=== PATIENT | male | born 1990 | race Caucasian/White ===

== ENCOUNTER 2016-10-31 04:00 | Inpatient (IN) | payer OTHER, MEDICARE ==
--- NOTE | ~2016-10-31 | HP ---
Unit #: [id number] #: [id number] Patient: NICO DURAN [id number] [place] [address] [id number] I MR#: [id number] NAME: NICO DURAN ROOM: 13 Age: 26 Sex: M Admission Date: 10/31/2016 : 1990 Attending Physician: Farrah Best M.D. Admitting Physician: Farrah Best M.D. Primary Care Physician: Almas Summers M.D. HISTORY AND PHYSICAL HISTORY OF PRESENT ILLNESS Nico is a 26 year old admitted to [address] [place] [address] with psychotic bizarre behavior. He has been running around his neighborhood telling his neighbors that he is Satan. He is a poor historian so his history is taken from his chart. PAST MEDICAL HISTORY Restless leg syndrome PAST SURGICAL HISTORY Nothing reported ALLERGIES No known drug allergies. SOCIAL HISTORY Smokes one-half pack per day. Denies alcohol and illicit drug use. FAMILY HISTORY Medically not known. REVIEW OF SYSTEMS He does not answer questions appropriately. There are no reports of nausea, vomiting or diarrhea. He has had no cough or increased temperature. CURRENT MEDICATIONS 1. Minipress 2 mg q.h.s. 2. Abilify 10 mg q.h.s. 3. Propranolol 10 mg b.i.d. 4. Depakote 500 mg b.i.d. 5. Saphris 10 mg b.i.d. 6. Milk of Magnesia p.r.n. 7. Maalox p.r.n. 8. Tylenol p.r.n. 9. Nicotine patch 14 mg q day PHYSICAL EXAMINATION GENERAL: Alert, well-nourished, in no apparent distress. VITAL SIGNS: Blood pressure 130/60, heart rate 80, respirations 16, temperature 98.6. WEIGHT: 250 pounds. Unit #: [id number] #: [id number] Patient: NICO DURAN HEIGHT: 5'7". SKIN: Warm and dry without rash or lesion. HEENT: Normocephalic. TMs not viewed. Oral and nasal passages clear. Conjunctivae clear. Pupils equal, round and reactive to light and accommodation. Extraocular movements intact. NECK: Supple without lymphadenopathy or thyromegaly. HEART: Regular rate and rhythm without murmur. LUNGS: Clear. ABDOMEN: Soft, nontender. : Not done. EXTREMITIES: No evidence of cyanosis, clubbing or edema. Moves all extremities without focal deficit. NEUROLOGICAL: Unable to complete extended exam. He does move all extremities without focal deficit. Hand senior dynamics crm developer is equal and gait is normal. IMPRESSION Psychiatric admission RECOMMENDATIONS PSYCHIATRIC: Per psychiatrist. MEDICAL: I see no contraindications to participating in facility's activities. MEDICAL PROGNOSIS Good. MEDICAL CONDITION Stable. Dictated by... Tammi Welch P.A.-C. for Danita Carter/siddhartha TD: 10/31/2016 22:54 JOB #: [id number] HISTORY AND PHYSICAL Page 1 of 1 X Tammi Welch PA X HISTORY AND PHYSICAL
--- NOTE | ~2016-10-31 | DS ---
Unit #: [id number] #: [id number] [facility] [id number] [facility] [address] [place] [address] [id number] I MR#: [id number] NAME: MELBA HARRISON ROOM: [facility] Age: 26 Sex: M Admission Date: 10/31/2016 : 1990 Discharge Date: 11/13/2016 Attending Physician: Farrah Best M.D. Primary Care Physician: Almas Summers M.D. DISCHARGE SUMMARY Mr. Harrison is a 26-year-old single white male with history of chronic mental illness, who is very well known to us from previous multiple encounters and was brought to the hospital as a transfer from [facility]. DISCHARGE DIAGNOSES Psychiatric: Schizoaffective disorder, bipolar type, most recent episode depressed, recurrent, moderate, with psychosis; alcohol dependence, moderate. Medical: None. Stressors: Moderate psychosocial stressors. HISTORY OF PRESENT ILLNESS Please see initial psychiatric evaluation for details. PAST PSYCHIATRIC HISTORY Please see initial psychiatric evaluation for details. PAST MEDICAL HISTORY Please see initial psychiatric evaluation for details. HOSPITAL COURSE The patient was admitted to the adult psychiatric unit at [facility] i[facility] Lisa and was oriented to the hospital environment. Routine p.r.n. medications were initiated, and he was started back on his home medications and he was seen to be acutely psychotic upon presentation and has been on a long-acting injectable antipsychotic. DICTATION ENDS HERE. Dictated by... Danita Reyes/yessy TD: 11/13/2016 06:57 JOB #: [id number] Unit #: [id number] #: [id number] Patient: MELBA HARRISON DISCHARGE SUMMARY Page 1 of 1 X Farrah Best MD X DISCHARGE SUMMARY
--- NOTE | ~2016-10-31 | PN ---
Unit #: [id number] #: [id number] Patient: MELBA HARRISON [id number] [facility] [address] [place] [address] [id number] I MR#: [id number] NAME: MELBA HARRISON ROOM: [facility] Age: 26 Sex: M Admission Date: 10/31/2016 : 1990 Attending Physician: Farrah Best M.D. Admitting Physician: Farrah Best M.D. Primary Care Physician: Danita Ignacio PROGRESS NOTES DATE November 05, 2016 DISCUSSION Mr. Harrison is a 26-year-old white male, who was seen today and chart was reviewed and the case was discussed with the staff. He has been anxious, restless, and disorganized, and had a rough day yesterday without physical aggression and paranoia, and acute psychotic break and p.r.n. dose of Thorazine had to be given. Meanwhile, he has been taking the medications and tolerating them fairly well with no reported side effects. MENTAL STATUS EXAMINATION Young white male, who was casually dressed with fair personal hygiene and appears to be in no acute distress or discomfort. He was awake and alert on interaction with intact orientation. His mood is anxious with a congruent affect. He denies any suicidal or homicidal ideations. His thought processes are disorganized with some looseness of associations and paranoid ideations. His insight and judgment remain significantly impaired. TREATMENT PLAN We will continue him on his current treatment protocol, and will monitor his response to the medications, and make further adjustments as needed. Dictated by... Danita Reyes/frida TD: 11/06/2016 08:56 JOB #: [id number] Unit #: [id number] #: [id number] Patient: MELBA HARRISON PROGRESS NOTES Page 1 of 1 X Farrah Best MD PROGRESS NOTE
--- NOTE | ~2016-10-31 | PN ---
Unit #: [id number] #: [id number] Patient: MELBA HARRISON [id number] [facility] [address] [place] [address] [id number] I MR#: [id number] NAME: MELBA HARRISON ROOM: 13 Age: 26 Sex: M Admission Date: 10/31/2016 : 1990 Attending Physician: Farrah Best M.D. Admitting Physician: Farrah Best M.D. Primary Care Physician: Danita Ignacio PROGRESS NOTES DATE OF SERVICE: 11/06/2016 SUBJECTIVE Mr. Harrison is a 26-year-old white male, who was seen today and chart was reviewed and case was discussed with the staff. He has been anxious, withdrawn, rather seclusive to himself. Meanwhile, he has been cooperative with treatment recommendations and has been taking the medications and tolerating them fairly well with no reported side effects. MENTAL STATUS EXAMINATION Young white male who was casually dressed with fair personal hygiene and appears to be in no acute distress or discomfort. He was awake and alert with intact orientation. His mood was anxious with a congruent affect. His speech was slow and tangential. His thought processes were disorganized with some looseness of associations and paranoid ideations. His insight and judgment remain significantly impaired. TREATMENT PLAN 1. We will continue him on his current treatment protocol. We will monitor his response and make further adjustments as needed. 2. We will continue to follow up. Dictated by... Danita Reyes/yessy TD: 11/08/2016 01:27 JOB #: [id number] [facility] PROGRESS NOTES Page 1 of 1 X Farrah Best MD X PROGRESS NOTE
--- NOTE | ~2016-10-31 | PN ---
Unit #: [id number] #: [id number] Patient: MELBA HARRISON [id number] [facility] [address] [place] [address] [id number] I MR#: [id number] NAME: MELBA HARRISON ROOM: 15 Age: 26 Sex: M Admission Date: 10/31/2016 : 1990 Attending Physician: Farrah Best M.D. Admitting Physician: Farrah Best M.D. Primary Care Physician: Danita Ignacio PROGRESS NOTES DATE 11/08/2016 DISCUSSION Mr. Harrison is a 26-year-old white male who was seen today and chart was reviewed and case was discussed with the staff. He has been anxious, withdrawn and rather seclusive to himself. Meanwhile, he has been cooperative with treatment recommendations and has been taking the medications though staff informed me that he has explosive diarrhea throughout the night and as such Imodium will be given. MENTAL STATUS EXAMINATION Young white male who was casually dressed with fair personal hygiene and appears to be in no acute distress or discomfort. He was awake and alert with impaired attention and concentration. His mood was anxious with a congruent affect. He denies any suicidal or homicidal ideation. His insight and judgement remains slightly impaired. TREATMENT PLAN 1. Will continue on his current treatment protocol and will monitor his response to the medications and make further adjustments as needed. 2. Will continue to follow up. Dictated by... Danita Reyes/yusuf TD: 11/09/2016 18:38 JOB #: [id number] Unit #: [id number] #: [id number] Patient: MELBA HARRISON PROGRESS NOTES Page 1 of 1 X Farrah Best MD X PROGRESS NOTE
--- NOTE | ~2016-10-31 | PN ---
Unit #: [id number] #: [id number] Patient: MELBA HARRISON [id number] [facility] [address] [place] [address] [id number] I MR#: [id number] NAME: MELBA HARRISON ROOM: 13 Age: 26 Sex: M Admission Date: 10/31/2016 : 1990 Attending Physician: Farrah Best M.D. Admitting Physician: Farrah Best M.D. Primary Care Physician: Danita Ignacio PROGRESS NOTES DATE OF SERVICE: 11/07/2016 SUBJECTIVE Mr. Harrison is a 26-year-old white male who was seen today and chart was reviewed and case was discussed with the staff. He has been anxious, withdrawn, and rather seclusive to himself. Meanwhile, he has been cooperative with treatment recommendations and has been taking the medications and tolerating them fairly well with no reported side effects. MENTAL STATUS EXAMINATION Young white male who was casually dressed with fair personal hygiene, appears to be in no acute distress or discomfort. He was awake and alert on interaction with intact orientation. His mood was anxious with a congruent affect. He denies any suicidal or homicidal ideations. His thought processes were disorganized with some looseness of associations and paranoid ideations. His insight and judgment remain significantly impaired. TREATMENT PLAN 1. We will continue him on his current medications and treatment protocol. We will monitor his response to the medications and make further adjustments as needed. 2. We will continue to follow up. Dictated by... Danita Reyes/eyssy TD: 11/08/2016 01:55 JOB #: [id number] Unit #: [id number] #: [id number] Patient: MELBA HARRISON PROGRESS NOTES Page 1 of 1 X Farrah Best MD PROGRESS NOTE
--- NOTE | ~2016-10-31 | PN ---
Unit #: [id number] #: [id number] Patient: MELBA HARRISON [id number] [facility] [address] [place] [address] [id number] I MR#: [id number] NAME: MELBA HARRISON ROOM: [facility] Age: 26 Sex: M Admission Date: 10/31/2016 : 1990 Attending Physician: Farrah Best M.D. Admitting Physician: Farrah Best M.D. Primary Care Physician: Danita Ignacio PROGRESS NOTES DATE 11/03/2016 DISCUSSION Mr. Harrison is a 26-year-old white male who was seen today and chart was reviewed and case was discussed with the staff. He has been anxious, withdrawn and rather seclusive to himself. Meanwhile, he has been cooperative with treatment recommendations and has been taking medications and tolerating them fairly well with no reported side effects. MENTAL STATUS EXAMINATION Young white male who was casually dressed with fair personal hygiene and appears to be in no acute distress or discomfort. He was awake and alert with impaired attention and concentration. His mood was anxious with congruent affect. His speech is slow and restricted in content. His thought processes were disorganized with some looseness of associations and flight of ideas. His insight and judgement remains significantly impaired. TREATMENT PLAN 1. Will continue on his current medications and treatment protocol and will monitor his response to the medications and make further adjustments as needed. 2. Will continue to follow up. Dictated by... Danita Reyes/yusuf TD: 11/03/2016 20:57 JOB #: [id number] Unit #: [id number] #: [id number] Patient: MELBA HARRISON PROGRESS NOTES Page 1 of 1 X Farrah Best MD X PROGRESS NOTE
--- NOTE | ~2016-10-31 | PN ---
Unit #: [id number] #: [id number] Patient: MELBA HARRISON [id number] [facility] [address] [place] [address] [id number] I MR#: [id number] NAME: MELBA HARRISON ROOM: [facility] Age: 26 Sex: M Admission Date: 10/31/2016 : 1990 Attending Physician: Farrah Best M.D. Admitting Physician: Farrah Best M.D. Primary Care Physician: Danita Ignacio PROGRESS NOTES DATE 11/10/2016 DISCUSSION Mr. Harrison is a 26-year-old, white male who was seen today and chart was reviewed and case was discussed with the staff who report the patient had another episode of physical aggression last night and was seen to have a violent outburst and was becoming a dander to self and others an intramuscular injection of Haldol and Benadryl were given to cut down his agitation and aggression and was able to go to sleep and when confronted about it, he acted like he has no recollection and then later stated that he was feeling paranoid and delusional. MENTAL STATUS EXAM Young white male who was casually dressed with fair personal hygiene, appears to be in no acute distress or discomfort. He was awake and alert with impaired attention and concentration. His mood was anxious with congruent affect. His speech was slow and restricted in content. His thought processes were disorganized with some looseness of associations. His insight and judgement remains significantly impaired. TREATMENT PLAN 1. We will continue him on his current medications and treatment protocol. We will monitor his response to the medication and make further adjustments as needed. 2. We will continue to follow up. Dictated by... Danita Reyes/siddhartha TD: 11/13/2016 02:19 JOB #: [id number] Unit #: [id number] #: [id number] Patient: MELBA HARRISON PROGRESS NOTES Page 1 of 1 X Farrah Best MD X PROGRESS NOTE
--- NOTE | ~2016-10-31 | PN ---
Unit #: [id number] #: [id number] Patient: MELBA HARRISON [id number] [facility] [address] [place] [address] [id number] I MR#: [id number] NAME: MELBA HARRISON ROOM: 15 Age: 26 Sex: M Admission Date: 10/31/2016 : 1990 Attending Physician: Farrah Best M.D. Admitting Physician: Farrah Best M.D. Primary Care Physician: Almas Summers M.D. PEAANDREW PROGRESS NOTES DATE 11/12/2016 DISCUSSION Mr. Harrison is a 26-year-old, white male who was seen today and chart was reviewed and case was discussed with the staff. He has been anxious, withdrawn and rather seclusive to himself. Meanwhile, he has been cooperative with treatment recommendations. He has been taking medications and tolerating them fairly well. MENTAL STATUS EXAM Young white male who was casually dressed with fair personal hygiene, appears to be in no acute distress or discomfort. He was awake and alert on interaction with intact orientation. His mood was anxious with congruent affect. He denies any suicidal or homicidal ideation. His insight and judgement remains slightly impaired. TREATMENT PLAN We will continue him on his current treatment protocol. We will monitor his response and make further adjustments as needed. Dictated by... Danita Reyes/siddhartha TD: 11/15/2016 00:36 JOB #: [id number] [facility] PROGRESS NOTES Page 1 of 1 X Farrah Best MD X PROGRESS NOTE
--- NOTE | ~2016-10-31 | PN ---
Unit #: [id number] #: [id number] Patient: MELBA HARRISON [id number] [facility] [address] [place] [address] [id number] I MR#: [id number] NAME: MELBA HARRISON ROOM: 13 Age: 26 Sex: M Admission Date: 10/31/2016 : 1990 Attending Physician: Farrah Best M.D. Admitting Physician: Farrah Best M.D. Primary Care Physician: Danita Ignacio PROGRESS NOTES DATE OF SERVICE: 11/04/2016 SUBJECTIVE Mr. Harrison is a 26-year-old white male who was seen today and chart was reviewed and case was discussed with the staff. He has been anxious and withdrawn, though has not shown any agitation or irritability. He has been cooperative with treatment recommendations and remains anxious, withdrawn, and rather seclusive to himself. MENTAL STATUS EXAMINATION Young white male who was casually dressed with fair personal hygiene, appears to be in no acute distress or discomfort. He was awake and alert with impaired attention and concentration. His mood was anxious with a congruent affect. He denies any suicidal or homicidal ideations. His thought processes were disorganized with some looseness of association and paranoid ideations. His insight and judgment remain significantly impaired. TREATMENT PLAN 1. We will continue him on his current medications and treatment protocol. We will monitor his response and make further adjustments as needed. 2. We will continue to follow up. Dictated by... Danita Reyes/yessy TD: 11/05/2016 22:47 JOB #: [id number] Unit #: [id number] #: [id number] Patient: MELBA HARRISON PROGRESS NOTES Page 1 of 1 X Farrah Best MD PROGRESS NOTE
--- NOTE | ~2016-10-31 | PN ---
Unit #: [id number] #: [id number] Patient: MELBA HARRISON [id number] [facility] [address] [place] [address] [id number] I MR#: [id number] NAME: MELBA HARRISON ROOM: 13 Age: 26 Sex: M Admission Date: 10/31/2016 : 1990 Attending Physician: Farrah Best M.D. Admitting Physician: Farrah Best M.D. Primary Care Physician: Danita Ignacio PROGRESS NOTES SUBJECTIVE Mr. Harrison is a 29-year-old white male, who was seen today and chart was reviewed and the case was discussed with the staff. He has been anxious, withdrawn, and rather seclusive to himself. Meanwhile, he has been cooperative with the treatment recommendations and has been taking the medications and tolerating them fairly well with no reported side effects. MENTAL STATUS EXAMINATION Young white male, who was casually dressed with fair personal hygiene, appears to be in no acute distress or discomfort. His mood was anxious with a congruent affect. He denies any suicidal or homicidal ideations and also denies any auditory or visual hallucinations. His insight and judgment remain slightly impaired. TREATMENT PLAN 1. We will continue him on his current medications and treatment protocol. We will monitor his response and make further adjustments as needed. 2. We will continue to follow up. Dictated by... Danita Reyes/yessy TD: 11/02/2016 14:22 JOB #: [id number] [facility] NOTES Page 1 of 1 X Farrah Best MD PROGRESS NOTE
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
--- NOTE | ~2016-10-31 | PN ---
Unit #: [id number] #: [id number] Patient: MELBA HARRISON [id number] [facility] [address] [place] [address] [id number] MR#: [id number] NAME: MELBA HARRISON ROOM: [facility] Age: 26 Sex: M Admission Date: 10/31/2016 : 1990 Attending Physician: Farrah Best M.D. Admitting Physician: Farrah Best M.D. Primary Care Physician: Danita Ignacio PROGRESS NOTES DATE 11/09/2016 DISCUSSION Mr. Harrison is a 26-year-old, white male who was seen today and chart was reviewed and case was discussed with the staff. He has been anxious, withdrawn, and rather seclusive to himself. Meanwhile, he has been cooperative with the treatment recommendations. He remains seclusive to himself with bizarre behavior, disorganized thought and speech and thought blocking, persistent paranoia and at times having some explosive and volatile behavior. Meanwhile, he has been taking the medication and tolerating them fairly well with no reported side effects but does not appear to be showing a full therapeutic response despite being on combination antipsychotics. MENTAL STATUS EXAM Young white male who was casually dressed with fair personal hygiene, appears to be in no acute distress or discomfort. He was awake and alert with impaired attention and concentration. His mood was anxious with congruent affect. His speech was slow and restricted in content. His thought processes were disorganized with some looseness of associations, thought blocking and paranoid ideations. His insight and judgement remains significantly impaired. TREATMENT PLAN 1. We will continue him on his current medications and treatment protocol. We will monitor his response to the medication and make further adjustment of needed. 2. We will continue to follow up. Dictated by... Danita Reyes/siddhartha TD: 11/10/2016 06:07 JOB #: [id number] Unit #: [id number] #: [id number] Patient: MELBA HARRISON PROGRESS NOTES Page 1 of 1 X Farrah Best MD PROGRESS NOTE
--- NOTE | ~2016-10-31 | DS ---
Unit #: [id number] #: [id number] Patient: MELBA HARRISON [id number] [facility] [address] [place] [address] [id number] MR#: [id number] NAME: MELBA HARRISON ROOM: 15 Age: 26 Sex: M Admission Date: 10/31/2016 : 1990 Discharge Date: 11/13/2016 Attending Physician: Farrah Best M.D. Primary Care Physician: Almas Summers M.D. DISCHARGE SUMMARY JOB NOTE: ADDENDUM ADDENDUM Mr. Harrison is a 26-year-old white male who was scheduled to be discharged earlier; however, discharge planning could not be completed and family did not feel safe having the patient come home and as such, it was decided the patient will be kept in a treatment program until medications stat taking effect and once the treatment plan was completed and the patient felt comfortable getting discharge from the program. Currently, it was decided that he will be discharged from our care and will continue further treatment on an outpatient basis. DISCHARGE CONDITION Stable. PROGNOSIS Fair. Dictated by... Danita Reyes/yessy TD: 12/19/2016 13:19 JOB #: [id number] DISCHARGE SUMMARY Page 1 of 1 X Farrah Best MD DISCHARGE SUMMARY
--- NOTE | ~2016-10-31 | PN ---
Unit #: [id number] #: [id number] Patient: MELBA HARRISON [id number] [facility] [address] [place] [address] [id number] MR#: [id number] NAME: MELBA HARRISON ROOM: 15 Age: 26 Sex: M Admission Date: 10/31/2016 : 1990 Attending Physician: Farrah Best M.D. Admitting Physician: Farrah Best M.D. Primary Care Physician: Danita Ignacio PROGRESS NOTES DATE OF SERVICE: 11/11/2016 SUBJECTIVE Mr. Harrison is a 26-year-old white male, who was seen today and chart was reviewed and case was discussed with the staff. He has been anxious, withdrawn, though has not shown any agitation or aggression. Meanwhile, he has been cooperative with treatment recommendations and has been taking the medications and tolerating them fairly well. MENTAL STATUS EXAMINATION Young white male who was casually dressed with fair personal hygiene, appears to be in no acute distress or discomfort. He was awake and alert on interaction with intact orientation. His mood was anxious with a congruent affect. He denies any suicidal or homicidal ideations. His insight and judgment remain slightly impaired. TREATMENT PLAN 1. We will continue on his current medications and treatment protocol. We will monitor his response to the medications and make further adjustments as needed. 2. We will continue to follow up. Dictated by... Danita Reyes/yessy TD: 11/12/2016 06:08 JOB #: [id number] J[facility] PROGRESS NOTES Page 1 of 1 X Farrah Best MD PROGRESS NOTE
--- NOTE | ~2016-10-31 | PN ---
Unit #: [id number] #: [id number] Patient: MELBA HARRISON [id number] [facility] [address] [place] [address] [id number] I MR#: [id number] NAME: MELBA HARRISON ROOM: [facility] Age: 26 Sex: M Admission Date: 10/31/2016 : 1990 Attending Physician: Farrah Best M.D. Admitting Physician: Farrah Best M.D. Primary Care Physician: Almas Summers M.D. [facility] PROGRESS NOTES DATE 11/01/2016 DISCUSSION Mr. Harrison is a 26-year-old, white male with schizoaffective disorder who was seen today and chart was reviewed and case was discussed with the staff. He has been anxious, withdrawn, disorganized, seclusive to himself. He is unable to carry on any meaningful conversation. Meanwhile, he has been cooperative with treatment recommendation. He has been taking medications and tolerating them fairly well with no reported side effects. MENTAL STATUS EXAM Young white male who was casually dressed with fair personal hygiene, appears to be in no acute distress or discomfort. He was awake and alert on interaction with impaired attention and concentration. His mood was anxious with congruent affect. His speech was slow and goal directed. His thought processes were disorganized with some looseness of associations and flight of ideas. His insight and judgement remains significantly impaired. DIAGNOSTIC IMPRESSION PSYCHIATRIC Schizoaffective disorder, bipolar type, most recent episode depressed recurrent, moderate, with psychosis. MEDICAL None. STRESSORS Mild psychosocial stressors. TREATMENT PLAN 1. The patient has a history of mood disorder, psychosis and he has been decompensating and will need inpatient hospitalization for safety and stabilization. Will start on his home medications and we will adjust the medication and we will monitor response. 2. Supportive therapy was provided to the patient. ESTIMATED LENGTH OF STAY Five to seven days. ABILITY TO HELP SELF Limited. Unit #: [id number] #: [id number] Patient: MELBA HARRISON WILLINGNESS TO HELP SELF. The patient appears to be willing to help self. STRENGTH 1. Communicative 2. Cooperative TREATMENT PLAN Continue on his current medication and monitor response. Dictated by... Danita Reyes/siddhartha TD: 11/02/2016 00:14 JOB #: [id number] [facility] PROGRESS NOTES Page 1 of 1 X Farrah Best MD PROGRESS NOTE
[~2016-10-31 04:00] MED LIST: BENADRYL25 MG PO; COGENTIN1 MG PO; COLACE PO; DIAZEPAM10 MG PO; EFFEXOR75 M2 PO; LITHIUM PO; PRILOSEC20 MG PO; SAPHRIS5 MG SL; TEMAZEPAM30 MG PO; TRIHEXYPHENIDYL2 M1 PO; VOLTAREN50 MG PO
[2016-11-01 09:49] LABS: BASOPHIL% 0.4 % (0-2.5); EOSINOPHIL# 0.5 X10e3 (0-0.7); HEMOGLOBIN 12.9 gm/dL (13.0-16.0); LYMPHOCYTE% 28.8 % (17.0-45.0); MEAN CELL VOLUME 81.6 FL (83-96); MEAN CORPUSCULAR HEMOGLOBIN 26.3 PG (28-34); MEAN CORPUSCULAR HGB CONC 32.2 g/dL (30-36); MONOCYTE# 1.3 X10e3 (0-1.0); MONOCYTE% 12.3 % (3.0-12.0); NEUTROPHIL# 5.6 X10e3 (1.5-7.1); NEUTROPHIL% 53.5 % (40-75); PLATELET COUNT 238 X10e3 (140-420); RED CELL DISTRIBUTION WIDTH 14.5 % (11.0-15.5); WHITE BLOOD COUNT 10.5 X10e3 (4.0-10.5)
[2016-11-01 09:57] LABS: THYROID STIMULATING HORMONE 1.4 uIU/ml (0.34-5.60)
[2016-11-01 10:02] LABS: DIFF IND NO
[2016-11-01 10:04] LABS: FREE THYROXIN (T4) 0.79 ng/dL (0.58-1.64)
[2016-11-01 10:31] LABS: ALBUMIN SERUM 3.7 g/dL (3.5-5.0); BILIRUBIN,TOTAL 0.8 mg/dL (0.2-2.0); CALCIUM SERUM 9.3 mg/dL (8.4-10.2); GLOM FILT RATE Estimated 104.9 mL/min (>60); POTASSIUM 4.5 mmol/L (3.5-5.1); PROTEIN TOTAL SERUM 6.6 g/dL (6.0-8.3)
[2016-11-04 12:25] LABS: URINE APPEARANCE CLEAR; URINE BILIRUBIN NEG (NEG); URINE BLOOD NEG (NEG); URINE COLOR YELLOW; URINE GLUCOSE NEG (NEG); URINE KETONE NEG (NEG); URINE LEUKOCYTE ESTERASE NEG (NEG); URINE NITRATE NEG (NEG); URINE PROTEIN NEG (NEG); URINE SPECIFIC GRAVITY 1.017 (1.003-1.035); URINE UROBILINOGEN 0.2 MG/DL (NEG)
[2016-11-04 12:46] LABS: AMPHETAMINE NEG (NEG); BARBITURATES NEG (NEG); BENZODIAZEPINES NEG (NEG); COCAINE NEG (NEG); MARIJUANA NEG (NEG); OPIATES NEG (NEG); TRICYCLIC ANTIDEPRESSANTS NEG (NEG); U METHADONE NEG (NEG)
== END 2016-11-13 10:00 | disposition home or self-care (01) | DRG 885 ==
LOC: P1S 10:16
PROVIDERS: Psychiatry & Neurology Psychiatry
DX: F25.0 Schizoaffective disorder, bipolar type (principal); F31.32 Bipolar disorder, current episode depressed, moderate; F29 Unspecified psychosis not due to a substance or known physiological condition; F10.20 Alcohol dependence, uncomplicated; F17.210 Nicotine dependence, cigarettes, uncomplicated
CPT/HCPCS: 80053; 80307; 81003; 84439; 84443; 85025; J1200; J1630

== ENCOUNTER 2016-11-16 19:01 | Inpatient (IN) | payer OTHER, MEDICARE ==
--- NOTE | ~2016-11-16 | PN ---
Unit #: [id number] #: [id number] Patient: MELBA HARRISON [id number] [facility] [address] [place] [address] [id number] MR#: [id number] NAME: MELBA HARRISON ROOM: P122 Age: 26 Sex: M Admission Date: 11/16/2016 : 1990 Attending Physician: Farrah Best M.D. Admitting Physician: Farrah Best M.D. Primary Care Physician: Almas Summers M.D. [facility] PROGRESS NOTES DATE November 20, 2016 DISCUSSION Mr. Harrison is a 26-year-old white male, who was seen today and chart was reviewed and the case was discussed with the staff. He has been anxious, withdrawn, agitated, and he was acutely psychotic, and had another explosive and violent outbursts yesterday and left instructions for Haldol to be given as the patient was (1) off the wall and responding to internal stimuli. His mother is also his guardian states that he has done better on a combination of Abilify which was ordered a monthly injection of that, plus Saphris and as such we are switching his Haldol to Saphris and we will monitor response and make further adjustments as needed. Dictated by... Danita Reyes/frida TD: 11/20/2016 11:43 JOB #: [id number] [facility] PROGRESS NOTES Page 1 of 1 X Farrah Best MD PROGRESS NOTE
--- NOTE | ~2016-11-16 | PN ---
Unit #: [id number] #: [id number] Patient: MELBA HARRISON [id number] [facility] [address] [place] [address] [id number] I MR#: [id number] NAME: MELBA HARRISON ROOM: P122 Age: 26 Sex: M Admission Date: 11/16/2016 : 1990 Attending Physician: Farrah Best M.D. Admitting Physician: Farrah Best M.D. Primary Care Physician: Danita Ignacio PROGRESS NOTES DATE 11/19/2016 DISCUSSION Mr. Harrison is a 26-year-old, white male who was seen today and chart was reviewed and case was discussed with the staff. He has been anxious, withdrawn though has not shown any agitation, irritability and has been cooperative with treatment recommendations. He has been taking medications and tolerating them fairly well. MENTAL STATUS EXAM Young white male who was casually dressed with fair personal hygiene, appears to be in no acute distress or discomfort. He was awake and alert with impaired attention and concentration. His mood was anxious and depressed with congruent affect. His speech was slow and restricted in content. His thought processes were disorganized with some looseness of associations. His insight and judgement remains significantly impaired. TREATMENT PLAN 1. We will continue him on his current medications and treatment protocol. We will monitor his response to the medication and make further adjustments as needed. 2. We will continue to follow up. Dictated by... Danita Reyes/siddhartha TD: 11/19/2016 23:19 JOB #: [id number] Unit #: [id number] #: [id number] Patient: MELBA HARRISON PROGRESS NOTES Page 1 of 1 X Farrah Best MD X PROGRESS NOTE
--- NOTE | ~2016-11-16 | PN ---
Unit #: [id number] #: [id number] Patient: MELBA HARRISON [id number] [facility] [address] [place] [address] [id number] I MR#: [id number] NAME: MELBA HARRISON ROOM: P122 Age: 26 Sex: M Admission Date: 11/16/2016 : 1990 Attending Physician: Farrah Best M.D. Admitting Physician: Farrah Best M.D. Primary Care Physician: Danita Ignacio PROGRESS NOTES DATE OF SERVICE: 11/22/2016 SUBJECTIVE Mr. Harrison is who was seen today and chart was reviewed and the case was discussed with the staff. anxious, withdrawn, and rather seclusive to himself . MENTAL STATUS EXAMINATION Young white male, who was casually dressed with fair personal hygiene and appears to be in no acute distress or discomfort. He was awake and alert with intact orientation. His mood was anxious with a congruent affect. He denies any suicidal or homicidal ideation. His insight and judgment remain slightly impaired. TREATMENT PLAN 1. We will continue him on his current medications and treatment protocol. We will monitor his response to the medications and make further adjustments as needed. 2. We will continue to follow up. Dictated by... Danita Reyes/janiyal TD: 11/22/2016 18:09 JOB #: [id number] [facility] PROGRESS NOTES Page 1 of 1 X Farrah Best MD PROGRESS NOTE
--- NOTE | ~2016-11-16 | PN ---
Unit #: [id number] #: [id number] Patient: MELBA HARRISON [id number] [facility] [address] [place] [address] [id number] MR#: [id number] NAME: MELBA HARRISON ROOM: P122 Age: 26 Sex: M Admission Date: 11/16/2016 : 1990 Attending Physician: Farrah Best M.D. Admitting Physician: Farrah Best M.D. Primary Care Physician: Danita Ignacio PROGRESS NOTES DATE November 26, 2016 DISCUSSION Mr. Harrison is a 26-year-old white male, who was seen today and chart was reviewed and the case was discussed with the staff. He has been anxious, withdrawn, but has not shown any agitation and appears to be calm and cooperative with the treatment recommendations and has been taking the medications and tolerating them fairly well. MENTAL STATUS EXAMINATION Young white male, who was casually dressed with fair personal hygiene and appears to be in no acute distress or discomfort. He was awake and alert on interaction with intact orientation. His mood is anxious. He denies any suicidal or homicidal ideations. His insight and judgment remain slightly impaired. TREATMENT PLAN 1. We will continue him on his current medications and treatment protocol, and will monitor his response to the medications, and make further adjustments as needed. 2. We will continue to followup. Dictated by... Danita Reyes/frida TD: 11/27/2016 11:34 JOB #: [id number] Unit #: [id number] #: [id number] Patient: MELBA HARRISON PROGRESS NOTES Page 1 of 1 X Farrah Best MD PROGRESS NOTE
--- NOTE | ~2016-11-16 | PN ---
Unit #: [id number] #: [id number] Patient: MELBA HARRISON [id number] [facility] [address] [place] [address] [id number] MR#: [id number] NAME: MELBA HARRISON ROOM: P122 Age: 26 Sex: M Admission Date: 11/16/2016 : 1990 Attending Physician: Farrah Best M.D. Admitting Physician: Farrah Best M.D. Primary Care Physician: Danita Ignacio PROGRESS NOTES DATE November 28, 2016 DISCUSSION Mr. Harrison is a 26-year-old white male, who was seen today and chart was reviewed and the case was discussed with the staff. He has been anxious, withdrawn, and rather seclusive to himself and remains disorganized; however, no agitation or aggression was noted and he has been taking his medications and tolerating them fairly well with no reported side effects. MENTAL STATUS EXAMINATION Young white male, who was casually dressed with fair personal hygiene and appears to be in no acute distress or discomfort. He was awake and alert on interaction with intact orientation. His mood is anxious with a congruent affect. He denies any suicidal or homicidal ideations. His insight and judgment remain significantly impaired. TREATMENT PLAN 1. We will continue him on his current medications and treatment protocol, and will monitor his response to the medications, and make further adjustments as needed. 2. We will continue to followup. Dictated by... Danita Reyes/frida TD: 11/29/2016 11:14 JOB #: [id number] Unit #: [id number] #: [id number] Patient: MELBA HARRISON PROGRESS NOTES Page 1 of 1 X Farrah Best MD PROGRESS NOTE
--- NOTE | ~2016-11-16 | PN ---
Unit #: [id number] #: [id number] Patient: MELBA HARRISON [id number] [facility] [address] [place] [address] [id number] I MR#: [id number] NAME: MELBA HARRISON ROOM: P122 Age: 26 Sex: M Admission Date: 11/16/2016 : 1990 Attending Physician: Farrah Best M.D. Admitting Physician: Farrah Best M.D. Primary Care Physician: Danita Ignacio PROGRESS NOTES DATE 11/18/2016 DISCUSSION Mr. Harrison is a 26-year-old, white male with mood disorder and psychosis who was seen today and chart was reviewed and case was discussed with the staff. He has been anxious, withdrawn, disorganized, seclusive to himself with blunted affect minimal interaction. Meanwhile, has been taking the medication and tolerating them fairly well with no reported side effects. MENTAL STATUS EXAM Young white male who was casually dressed with fair personal hygiene, appears to be in no acute distress or discomfort. He was awake and alert with impaired attention and concentration. His mood was anxious with congruent affect. He denies any suicidal or homicidal ideation. His insight and judgement remains significantly impaired. TREATMENT PLAN We will continue him on his current medications and treatment protocol. We will monitor his response and make further adjustments as needed. Dictated by... Danita Reyes/siddhartha TD: 11/19/2016 03:15 JOB #: [id number] [facility] PROGRESS NOTES Page 1 of 1 X Farrah Best MD PROGRESS NOTE
--- NOTE | ~2016-11-16 | PN ---
Unit #: [id number] #: [id number] Patient: MELBA HARRISON [id number] [facility] [address] [place] [address] [id number] MR#: [id number] NAME: MELBA HARRISON ROOM: P122 Age: 26 Sex: M Admission Date: 11/16/2016 : 1990 Attending Physician: Farrah Best M.D. Admitting Physician: Farrah Best M.D. Primary Care Physician: Danita Ignacio PROGRESS NOTES DATE November 21, 2016 DISCUSSION Mr. Harrison is a 26-year-old white male, with mood disorder and psychosis, who was seen today and chart was reviewed and the case was discussed with the staff. His mother has called us stating that he has done better on the Saphris and Abilify and would like him to be on both of the medications as Saphris was just started yesterday and Haldol was discontinued. Meanwhile, he has been anxious withdrawn, disorganized, and rather seclusive to himself with bizarre behavior; however, did not have any violent outbursts yesterday. MENTAL STATUS EXAMINATION Young white male, who was casually dressed with fair personal hygiene and appears to be in no acute distress or discomfort. He was awake and alert on interaction with intact orientation. His mood is anxious and depressed with a congruent affect. His speech is slow and goal-directed. He denies any current suicidal or homicidal ideations. His insight and judgment remain significantly impaired. TREATMENT PLAN 1. We will continue him on his current medications and treatment protocol, and will add Abilify and will consider him to be a candidate for long-acting and injectable Abilify. 2. We will continue to followup. Dictated by... Danita Reyes/frida TD: 11/21/2016 13:13 JOB #: [id number] Unit #: [id number] #: [id number] Patient: MELBA HARRISON PROGRESS NOTES Page 1 of 1 X Farrah Best MD PROGRESS NOTE
--- NOTE | ~2016-11-16 | PN ---
Unit #: [id number] #: [id number] Patient: MELBA HARRISON [id number] [facility] [address] [place] [address] [id number] I MR#: [id number] NAME: MELBA HARRISON ROOM: P122 Age: 26 Sex: M Admission Date: 11/16/2016 : 1990 Attending Physician: Farrah Best M.D. Admitting Physician: Farrah Best M.D. Primary Care Physician: Danita Ignacio NOTES DATE OF SERVICE 11/23/2016 DISCUSSION Mr. Harrison is a 26-year-old white male who was seen today. Chart was reviewed and case was discussed with the staff. He appears to be doing better and has received his Abilify Maintena and has not shown any tolerability issues. Meanwhile, he has been taking the medications and tolerating them fairly well though he does appear to be seclusive to himself and has been (1) __ with minimal interaction and poor personal hygiene. MENTAL STATUS EXAMINATION Young white male who is casually dressed with fair personal hygiene, appears to be in no acute distress or discomfort. The patient was awake and alert with impaired attention and concentration. His mood is anxious with a congruent affect. His speech is slow and restricted in content. His thought processes were disorganized with some looseness of associations. His insight and judgment remain significantly impaired. TREATMENT PLAN 1. We will continue him on his current medications and treatment protocol. We will monitor his response to the medications and make further adjustments as needed. 2. We will continue to follow up. Dictated by... Danita Reyes/sloane TD: 11/24/2016 11:44 JOB #: [id number] Unit #: [id number] #: [id number] Patient: MELBA HARRISON PROGRESS NOTES Page 1 of 1 X Farrah Best MD PROGRESS NOTE
--- NOTE | ~2016-11-16 | PN ---
Unit #: [id number] #: [id number] Patient: MELBA HARRISON [id number] [facility] [address] [place] [address] [id number] I MR#: [id number] NAME: MELBA HARRISON ROOM: [facility] Age: 26 Sex: M Admission Date: 11/16/2016 : 1990 Attending Physician: Farrah Best M.D. Admitting Physician: Farrah Best M.D. Primary Care Physician: Danita Ignacio PROGRESS NOTES DATE November 27, 2016 DISCUSSION Mr. Harrison is a 26-year-old white male, who was seen today and chart was reviewed and the case was discussed with the staff. He has been anxious, withdrawn, but is not showing any agitation or irritability, and has been cooperative with the treatment recommendations. He has been taking the medications and tolerating them fairly well with no side effects. MENTAL STATUS EXAMINATION Young white male, who was casually dressed with fair personal hygiene and appears to be in no acute distress or discomfort. He was awake and alert on interaction with intact orientation. His mood is anxious with a congruent affect. He denies any suicidal or homicidal ideations, and also denies any auditory or visual hallucinations. His insight and judgment remain slightly impaired. TREATMENT PLAN 1. We will continue him on his current medications and treatment protocol, and will monitor his response to the medications, and make further adjustments as needed. 2. We will continue to followup. Dictated by... Danita Reyes/frida TD: 11/28/2016 09:33 JOB #: [id number] Unit #: [id number] #: [id number] Patient: MELBA HARRISON PROGRESS NOTES Page 1 of 1 X Farrah Best MD PROGRESS NOTE
--- NOTE | ~2016-11-16 | DS ---
Unit #: [id number] #: [id number] Patient: MELBA HARRISON [id number] [facility] [address] [place] [address] [id number] I MR#: [id number] NAME: MELBA HARRISON ROOM: [facility] Age: 26 Sex: M Admission Date: 11/16/2016 : 1990 Discharge Date: Attending Physician: Farrah Best M.D. Primary Care Physician: Almas Summers M.D. DISCHARGE SUMMARY IDENTIFYING DATA Mr. Harrison is a 26-year-old single white male, who is a resident of [place], [place], and was transferred to us from [facility] at [facility]. DISCHARGE DIAGNOSES Psychiatric: Chronic paranoid schizophrenia. Medical: Hypercoagulability, gastroesophageal reflux disease. Stressors: Mild psychosocial stressors. HISTORY OF PRESENT ILLNESS Please see initial psychiatric evaluation for details. PAST PSYCHIATRIC HISTORY Please see initial psychiatric evaluation for details. PAST MEDICAL HISTORY Please see initial psychiatric evaluation for details. HOSPITAL COURSE The patient was admitted to the adult psychiatric unit at [facility] and was oriented to the hospital environment. Routine p.r.n. medications were initiated and he was started back on his home medications and medications were adjusted. However, the patient was seen to be not showing a therapeutic response and his mother then informed us that he has done better on a combination of Saphris and Abilify and Saphris was then started at 10 mg sublingual b.i.d. and oral Abilify was initiated and given his history of poor compliance with medication, he was considered to be a good candidate for long-acting injectable Abilify and since he did not show any tolerability issues to the oral Abilify, Abilify Maintena 400 mg intramuscular once every 30 days was initiated and he was given the first dose while on the unit; followed by which, it was decided that he will be discharged home and will continue treatment on an outpatient basis. DISCHARGE MEDICATIONS Abilify Maintena 400 mg intramuscular every 30 days for psychosis and Saphris 10 mg sublingual b.i.d. for psychosis. DISCHARGE CONDITION Stable. PROGNOSIS Fair. Unit #: [id number] #: [id number] Patient: MELBA HARRISON Dictated by... Danita Reyes/yessy TD: 11/29/2016 06:46 JOB #: [id number] DISCHARGE SUMMARY Page 1 of 1 X Farrah Best MD DISCHARGE SUMMARY
--- NOTE | ~2016-11-16 | PN ---
Unit #: [id number] #: [id number] Patient: MELBA HARRISON [id number] [facility] [address] [place] [address] [id number] I MR#: [id number] NAME: MELBA HARRISON ROOM: P122 Age: 26 Sex: M Admission Date: 11/16/2016 : 1990 Attending Physician: Farrah Best M.D. Admitting Physician: Farrah Best M.D. Primary Care Physician: Danita Ignacio PROGRESS NOTES DATE November 23, 2016 DISCUSSION Mr. Harrison is a 26-year-old white male, who was seen today and chart was reviewed and the case was discussed with the staff. He has remained anxious, withdrawn, and rather seclusive to himself and disorganized thoughts, speech, and behavior. Meanwhile, he has been taking the medications and tolerating them fairly well with no reported side effects. MENTAL STATUS EXAMINATION Young white male, who was casually dressed with fair personal hygiene and appears to be in no acute distress or discomfort. He was awake and alert with impaired attention and concentration. His mood is anxious with a congruent affect. His speech is slow and restricted in content. His thought processes are disorganized with some looseness of associations. His insight and judgment remain significantly impaired. TREATMENT PLAN 1. We will continue him on his current medications and treatment protocol, and will monitor his response to the medications, and make further adjustments as needed. 2. We will continue to followup. Dictated by... Danita Reyes/frida TD: 11/23/2016 12:04 JOB #: [id number] Unit #: [id number] #: [id number] Patient: MELBA HARRISON PROGRESS NOTES Page 1 of 1 X Farrah Best MD PROGRESS NOTE
--- NOTE | ~2016-11-16 | HP ---
Unit #: [id number] #: [id number] Patient: NICO DURAN [id number] [facility] [address] [place] [address] [id number] I MR#: [id number] NAME: NICO DURAN ROOM: P122 Age: 26 Sex: M Admission Date: 11/16/2016 : 1990 Attending Physician: Farrah Best M.D. Admitting Physician: Farrah Best M.D. Primary Care Physician: Almas Summers M.D. HISTORY AND PHYSICAL Nico is a 26-year-old male admitted to [address] [place] [address] on 11/16/2016 for psychosis. He had a recent admission on 10/31/2016 for the same. I reviewed the history and physical from that admission and there are no changes. Dictated by... Diane Sibley/yusuf TD: 11/17/2016 16:29 JOB #: [id number] HISTORY AND PHYSICAL Page 1 of 1 X PUNEET TIM APRN HISTORY AND PHYSICAL
--- NOTE | ~2016-11-16 | PA ---
Unit #: [id number] #: [id number] Patient: MELBA HARRISON [id number] [facility] [address] [place] [address] [id number] I MR#: [id number] NAME: MELBA HARRISON ROOM: P122 Age: 26 Sex: M Admission Date: 11/16/2016 : 1990 Date of Assessment: Attending Physician: Farrah Best M.D. Admitting Physician: Farrah Best M.D. Primary Care Physician: Almas Summers M.D. PSYCHIATRIC ASSESSMENT DATE OF SERVICE 11/17/2016. IDENTIFYING DATA Mr. Harrison is a 26-year-old, single, white male, who is a resident of [place], [place], and was transferred to us from the emergency room as he was recently discharged from my care. CHIEF COMPLAINT "I want to kill myself, I've been running out into traffic." HISTORY OF PRESENT ILLNESS Mr. Harrison is a 26-year-old white male with a long history of mental illness and was recently discharged from my care; however, he was brought back to the hospital at [facility] by [facility] for making suicidal statements and reporting that he is going to kill himself by running into traffic and reports that he has been off his medication for the last 2 days due to the belief that the devil is after him and asking him to let the demon out and kill all the Christians. He apparently has destroyed his apartment and has been acutely psychotic, agitated, and has a history of being violent and aggressive and hostile and as such, was seen to be a significant threat to himself and others and therefore, recommendation for inpatient level of care for safety and stabilization was made. SUBSTANCE ABUSE HISTORY The patient reports occasional experimentation with alcohol, but denies any other drug abuse. PAST PSYCHIATRIC HISTORY The patient has had a history of numerous and multiple inpatient psychiatric hospitalizations including [facility] and has been on different psychotropic medications, but has not been able to show a therapeutic response as he does have a history of poor compliance with treatment recommendations. PAST MEDICAL HISTORY The patient's medical history is significant for gastroesophageal reflux disease, hypercoagulability, obesity. ALLERGIES No known medication allergies. Unit #: [id number] #: [id number] Patient: MELBA HARRISON PERSONAL AND SOCIAL HISTORY A 26-year-old white male, who reports that he is single, unemployed, and lives alone and his mother has been his only support system. MENTAL STATUS EXAMINATION Young white male, who was casually dressed with fair personal hygiene, appears to be in no acute distress or discomfort. He was awake and alert with impaired attention and concentration. His mood was anxious with a congruent affect. His speech was slow and tangential. His thought processes were disorganized with some looseness of associations and flight of ideas and paranoid ideations and delusional behavior. His insight and judgment remain significantly impaired. DIAGNOSTIC IMPRESSION Psychiatric: Chronic paranoid schizophrenia. Medical: Hypercoagulability, gastroesophageal reflux disease. Stressors: Moderate psychosocial stressors. TREATMENT PLAN 1. The patient has presented with a history of mood disorder and psychosis and has been decompensating and will need inpatient hospitalization for safety and stabilization. We will start him back on his home medications. We will adjust the medications and monitor response. 2. Supportive therapy was provided to the patient. 3. Safe, structured, and nourishing environment will be provided. ESTIMATED LENGTH OF STAY 5 to 7 days. ABILITY TO HELP SELF Limited. WILLINGNESS TO HELP SELF The patient appears to be willing to help self. STRENGTHS 1. Communicative. 2. Cooperative. PROBLEMS 1. Chronic dysphoric symptoms. 2. Chronic chemical dependency. 3. Poor social support system. DISCHARGE CRITERIA This will be contingent upon the patient's ability to show resolution of his depression and psychosis and his ability to stay safe to himself and others, particularly after discharge from the hospital. Dictated by... Danita Reyes/yessy Unit #: [id number] #: [id number] Patient: MELBA HARRISON TD: 11/17/2016 07:46 JOB #: [id number] PSYCHIATRIC ASSESSMENT Page 1 of 1 X Farrah Best MD X PSYCHIATRIC ASSESSMENT
--- NOTE | ~2016-11-16 | PN ---
Unit #: [id number] #: [id number] Patient: MELBA HARRISON [id number] [facility] [address] [place] [address] [id number] MR#: [id number] NAME: MELBA HARRISON ROOM: P122 Age: 26 Sex: M Admission Date: 11/16/2016 : 1990 Attending Physician: Farrah Best M.D. Admitting Physician: Farrah Best M.D. Primary Care Physician: Danita Ignacio PROGRESS NOTES DATE 11/25/2016 DISCUSSION Mr. Harrison is a 26-year-old white male who was seen today and chart was reviewed and case was discussed with the staff. He has been anxious, withdrawn and seclusive to himself. Meanwhile, he has been cooperative with treatment recommendations and has been taking medications and tolerating them fairly well with no reported side effects. MENTAL STATUS EXAMINATION Young white male who was casually dressed with fair personal hygiene and appears to be in no acute distress or discomfort. He was awake and alert on interaction with intact orientation. His mood was anxious with congruent affect. He denies any suicidal or homicidal ideations and also denies any auditory or visual hallucinations. His insight and judgement remains significantly impaired. TREATMENT PLAN 1. Will continue him on his current medications and treatment protocol. Will monitor his response and make further adjustments as needed. 2. Will continue to follow up. Dictated by... Danita Reyes/yusuf TD: 11/25/2016 17:31 JOB #: [id number] Unit #: [id number] #: [id number] Patient: MELBA HARRISON PROGRESS NOTES Page 1 of 1 X Farrah Best MD X PROGRESS NOTE
== END 2016-11-29 13:43 | disposition home or self-care (01) | DRG 885 ==
LOC: P1S 21:02
DX: F20.0 Paranoid schizophrenia (principal); E66.9 Obesity, unspecified; K21.9 Gastro-esophageal reflux disease without esophagitis
CPT/HCPCS: J1200; J1630

== ENCOUNTER 2017-01-04 03:00 | Inpatient (IN) | payer OTHER, MEDICARE ==
[~2017-01-04] VITALS: Ht 170.2 cm; Wt 108.9 kg
--- NOTE | ~2017-01-04 | PN ---
Unit #: [id number] #: [id number] Patient: MELBA DURAN [id number] [facility] [address] [place] [address] [id number] I MR#: [id number] NAME: MELBA DURAN ROOM: 12 Age: 26 Sex: M Admission Date: 01/04/2017 : 1990 Attending Physician: Farrah Best M.D. Admitting Physician: Farrah Best M.D. Primary Care Physician: Primary Care Physician Kylah VALENTE NOTES DATE OF SERVICE 01/05/2017 DISCUSSION Mr. Duran is a 26-year-old white male with psychosis who was seen today. Chart was reviewed and case was discussed with the staff. He remains anxious, withdrawn, and rather seclusive to himself with a blunted affect and minimal interaction. Meanwhile, she has been taking the medications and tolerating them fairly well with no reported side effects. MENTAL STATUS EXAMINATION Young white male who is casually dressed with fair personal hygiene, appears to be in no acute distress or discomfort. The patient was awake and alert with intact orientation. His mood is anxious with congruent affect. He denies any suicidal or homicidal ideations. His insight and judgment remain slightly impaired. TREATMENT PLAN We will continue him on his current medications and treatment protocol, and we will monitor his response to the medications and make further adjustments as needed. Dictated by... Farrah Best M.D. IAA/andreag TD: 01/05/2017 09:17 JOB #: [id number] JU VALENTE NOTES Page 1 of 1 X Farrah Best MD PROGRESS NOTE
--- NOTE | ~2017-01-04 | PN ---
Unit #: [id number] #: [id number] Patient: MELBA HARRISON [id number] [facility] [address] [place] [address] [id number] I MR#: [id number] NAME: MELBA HARRISON ROOM: 12 Age: 26 Sex: M Admission Date: 01/04/2017 : 1990 Attending Physician: Farrah Best M.D. Admitting Physician: Farrah Best M.D. Primary Care Physician: Primary Care Physician Kylah VALENTE NOTES DATE January 07, 2017 DISCUSSION Mr. Harrison is a 26-year-old white male, who was seen today and chart was reviewed and the case was discussed with the staff. He has been doing fairly well with no agitation, irritability, and has been cooperative with the treatment recommendations and he has been taking the medications and tolerating them fairly well with no reported side effects. MENTAL STATUS EXAMINATION Young white male, who was casually dressed with fair personal hygiene and appears to be in no acute distress or discomfort. He was awake and alert with intact orientation. His mood is anxious with a congruent affect. He denies any suicidal or homicidal ideations. His insight and judgment remain slightly impaired. TREATMENT PLAN 1. We will continue him on his current medications and treatment protocol, and will monitor his response to the medications, and make further adjustments as needed. 2. We will continue to followup. Dictated by... Danita Reyes/frida TD: 01/08/2017 05:27 JOB #: [id number] Unit #: [id number] #: [id number] Patient: MELBA HARRISON ESTUARDOANDREW PROGRESS NOTES Page 1 of 1 X Farrah Best MD PROGRESS NOTE
--- NOTE | ~2017-01-04 | PA ---
Unit #: [id number] #: [id number] Patient: MELBA DURAN [id number] [facility] [address] [place] [address] [id number] MR#: [id number] NAME: MELBA DURAN ROOM: 12 Age: 26 Sex: M Admission Date: 01/04/2017 : 1990 Date of Assessment: 01/04/2017 Attending Physician: Aj Stubbs M.D. Admitting Physician: Aj Stubbs M.D. Primary Care Physician: Primary Care Physician No PSYCHIATRIC ASSESSMENT INFORMANTS The patient reliability, fair informant and chart reliability, good. CHIEF COMPLAINT Hallucination and irritable. HISTORY OF PRESENT ILLNESS Mr. Walsh is a 26-year-old male, presented due to increase in aggressive behavior and auditory hallucination. The patient reported recently had med changes including being taken off from lithium. The patient reported feeling pissed off at everyone. The patient reported auditory hallucination have increased in severity, stating that they scream at him. The patient currently resides in a personal senior care, [facility] and became aggressive and destructive at the placement on 01/03/2017. The patient had increasing impulsivity and placed on 72-hour hold, and subsequently, needed inpatient admission at this time for psychiatric stabilization. PAST PSYCHIATRIC HISTORY Remarkable for history of previous multiple treatment at [facility] in 2008, 2011, 2012, and 2016; last admitted in 11/16/2016. FAMILY HISTORY AND SOCIAL HISTORY The patient has a poor support system. Resides at [facility]. No known history of any abuse. No legal charges. MEDICATION HISTORY The patient is on Protonix 40 mg daily, Xarelto, propranolol, and Saphris 10 mg b.i.d. [facility], Inderal, Minipress, Xarelto, Protonix, and Vistaril. ALLERGIES No known drug allergies. SUBSTANCE ABUSE HISTORY None. REVIEW OF SYSTEMS HEENT: Eyes, clear. Ears, nose, mouth, and throat; clear. CARDIOVASCULAR: Unremarkable. RESPIRATORY: Unremarkable. GI: Unremarkable. : Unremarkable. Unit #: [id number] #: [id number] Patient: MELBA DURAN SKIN: Unremarkable. LYMPH NODE: Unremarkable. NEUROLOGIC: Unremarkable. ENDOCRINE: Unremarkable. HEMATOLOGIC: Unremarkable. ALLERGIC/IMMUNOLOGIC: Unremarkable. MUSCULOSKELETAL: Muscle strength and tone, no atrophy or abnormal movement. Gait normal. MENTAL STATUS EXAMINATION CONSTITUTIONAL: Measurement of vital signs; temperature 97.8, heart rate 90, respiratory rate 18, oxygen saturation 98%, and blood pressure 116/70. Height 5 feet 7 inches and weight 240 pounds. GENERAL APPEARANCE: The patient dressed casually, withdrawn, isolative, and guarded. No facial deformity noted. MUSCULOSKELETAL: Please see above. PSYCHIATRIC EXAMINATION Description of speech; regular rate, normal volume, normal articulation, and nonspontaneous. Description of thought process, circumstantial. Description of association; guarded, paranoid, hallucination, and suicidal ideation. Denied any homicidal ideation. Mood lability and aggressive behavior. Description of the patient's judgment: Concerning everyday activity, poor. Social situation, poor. Concerning psychiatric condition, poor. Complete mental status examination; oriented in time, place, and person. Recent and remote memory, fair. Attention span and concentration, fair. Language, intact. Fund of knowledge, fair. Vocabulary, fair. Mood and affect, sad and dysphoric. Insight and judgment, fair to poor. ASSETS AND LIABILITIES Assets, the patient is articulate and able to take care of his ADL. Liability, history of psychosis and depression. ADMITTING DIAGNOSES Psychiatric: Schizophrenia, chronic paranoid type. Secondary diagnosis: Deferred. Medical diagnoses: Hypercoagulability and gastroesophageal reflux disease. Stressors: Psychosocial stressors. PSYCHIATRIC PLAN AND TREATMENT GOAL AND DISCHARGE PLAN 1. Advised to admit the patient on the inpatient unit. Provide safe, supportive, and structured environment. 2. Ordered labs; CBC, CMP, UA, and UDS. 3. Precaution for aggression, self-harm, and psychosis. 4. The patient to attend all the programing on the inpatient unit, group therapy, individual therapy, and structured milieu. 5. Advised to resume home medication with a plan to consider a trial of Celexa 20 mg at bedtime. If needed, consider a second antipsychotic agent, a typical antipsychotic such as haloperidol or Thorazine. If needed, consider further adjustment of medication. Treatment goal to attain euthymic mood, gain insight into his problem, learn coping skills, and control psychotic symptom. Unit #: [id number] #: [id number] Patient: MELBA DURAN DISCHARGE PLAN Plan to stabilize the patient and consider followup in outpatient program. ESTIMATED LENGTH OF STAY 5 to 7 days. Dictated by... Danita Hernández/yessy TD: 01/04/2017 17:15 JOB #: [id number] PSYCHIATRIC ASSESSMENT Page 1 of 1 X Aj Stubbs MD X PSYCHIATRIC ASSESSMENT
--- NOTE | ~2017-01-04 | HP ---
Unit #: [id number] #: [id number] Patient: NICO DURAN [id number] [place] [address] [id number] MR#: [id number] NAME: NICO DURAN ROOM: 12 Age: 26 Sex: M Admission Date: 01/04/2017 : 1990 Attending Physician: Aj Stubbs M.D. Admitting Physician: Aj Stubbs M.D. Primary Care Physician: Primary Care Physician No HISTORY AND PHYSICAL HISTORY OF PRESENT ILLNESS Nico is a 26 year old admitted to [address] [place] [address] with psychotic behavior. He has had other admissions to this facility for the same. He is a poor historian so his history is taken from his chart. PAST MEDICAL HISTORY 1. Restless leg syndrome. 2. Obesity. 3. History of DVT with PE. 4. High blood pressure. PAST SURGICAL HISTORY Nothing reported. ALLERGIES No known drug allergies. SOCIAL HISTORY Smokes one-half pack per day. Denies alcohol and illicit drug use. FAMILY HISTORY Medically noncontributory. REVIEW OF SYSTEMS He does not answer questions appropriately. There are no reports of nausea or vomiting or diarrhea. He has had no cough or increased temperature. CURRENT MEDICATIONS 1. Protonix 40 mg q day 2. Celexa 20 mg q day 3. Xarelto 20 mg q day 4. Propranolol 10 mg b.i.d. 5. Saphris 10 mg b.i.d. 6. Milk of Magnesia p.r.n. 7. Maalox p.r.n. 8. Tylenol p.r.n. 9. Vistaril 50 mg q.6 h p.r.n. 10. Nicotine patch 21 mg q day PHYSICAL EXAMINATION GENERAL: Alert, well-nourished, in no apparent distress. Unit #: [id number] #: [id number] Patient: NICO DURAN VITAL SIGNS: Blood pressure 116/70, heart rate 80, respirations 16, temperature 98.6. WEIGHT: 240. HEIGHT: 5 foot 7 inches. SKIN: Warm and dry without rash or lesion. HEENT: Normocephalic. TMs not viewed. Oral and nasal passages clear. Conjunctivae clear. Pupils equal, round and reactive to light and accommodation. Extraocular movements intact. NECK: Supple without lymphadenopathy or thyromegaly. HEART: Regular rate and rhythm without murmur. LUNGS: Clear. ABDOMEN: Soft, nontender. : Not done. EXTREMITIES: No evidence of cyanosis, clubbing or edema. Moves all extremities without focal deficit. NEUROLOGICAL: Unable to complete extended exam. He does move all extremities without focal deficit. Hand ski lift mechanic is equal and gait is normal. IMPRESSION Psychiatric admission. RECOMMENDATIONS PSYCHIATRIC: Per psychiatrist. MEDICAL: 1. I see no contraindications to participating in facility's activities. 2. Family tells me that his propranolol was discontinued at his last office visit. We will decrease propranolol to 5 mg b.i.d. times one week then 5 mg q. day times a week and then D.C. 3. Continue Xarelto. MEDICAL PROGNOSIS Good. MEDICAL CONDITION Stable. Dictated by... Tammi Welch P.A.-C. for Danita Carter/siddhartha TD: 01/04/2017 21:05 JOB #: [id number] Unit #: [id number] #: [id number] Patient: NICO DURAN HISTORY AND PHYSICAL Page 1 of 1 X Tammi Welch HISTORY AND PHYSICAL
--- NOTE | ~2017-01-04 | DS ---
Unit #: [id number] #: [id number] Patient: [facility] [id number] [facility] [address] [place] [address] [id number] MR#: [id number] NAME: EMLBA HARRISON ROOM: [facility] Age: 26 Sex: M Admission Date: 01/04/2017 : 1990 Discharge Date: 01/10/2017 Attending Physician: Farrah Best M.D. Primary Care Physician: Primary Care Physician No DISCHARGE SUMMARY IDENTIFYING DATA Mr. Harrison is a 26-year-old single white male, with history of mood disorder, psychosis, and who is known to me from previous encounters, and was brought to the hospital. HISTORY OF PRESENT ILLNESS Please see initial psychiatric evaluation for details. PAST PSYCHIATRIC HISTORY Please see initial psychiatric evaluation for details. PAST MEDICAL HISTORY Please see initial psychiatric evaluation for details. HOSPITAL COURSE The patient was admitted to the Adult Psychiatric Unit at [facility] i[facility] and was oriented to the hospital environment. Routine p.r.n. medications were initiated and he was started back on his home medications including Saphris, as an antipsychotic, and Celexa was initiated as an antidepressant, and he was closely monitored. He was taking the medications regularly and was tolerating them fairly well and he had a rather complicated course of stay here as he did not show any agitation, aggression, or hostility, and was denying any suicidal ideations, intent, or plan, and was willing to continue treatment on an outpatient basis, and as such it was decided that he will be discharged home and will continue treatment on outpatient basis. DISCHARGE DIAGNOSES Psychiatric: [place] I Chronic paranoid schizophrenia. [place] II [place] III None. [place] IV Marked psychosocial stressors. [place] V DISCHARGE MEDICATIONS 1. Saphris 10 mg sublingual twice a day for schizophrenia 2. Celexa 20 mg a day for depression CONDITION AT DISCHARGE Stable. Unit #: [id number] #: [id number] Patient: MELBA HARRISON PROGNOSIS Fair. Dictated by... Danita Reyes/frida TD: 01/11/2017 07:40 JOB #: [id number] DISCHARGE SUMMARY Page 1 of 1 X Farrah Best MD DISCHARGE SUMMARY
--- NOTE | ~2017-01-04 | PN ---
Unit #: [id number] #: [id number] Patient: MELBA HARRISON [id number] [facility] [address] [place] [address] [id number] I MR#: [id number] NAME: MELBA HARRISON ROOM: 12 Age: 26 Sex: M Admission Date: 01/04/2017 : 1990 Attending Physician: Farrah Best M.D. Admitting Physician: Farrah Best M.D. Primary Care Physician: Primary Care Physician Kylah VALENTE NOTES DATE 01/06/2017 DISCUSSION Mr. Harrison is a 26-year-old white male who was seen today and chart was reviewed and case was discussed with the staff. He has been anxious, withdrawn and rather seclusive to himself. Meanwhile, he has been cooperative with treatment recommendations and has been taking the medications and tolerating them fairly well with no reported side effects. MENTAL STATUS EXAMINATION Young white male who was casually dressed with fair personal hygiene and appears to be in no acute distress or discomfort. He was awake and alert on interaction with intact orientation. His mood was anxious with congruent affect. He denies any suicidal or homicidal ideations. His thought processes were disorganized with some looseness of association and flight of ideas and paranoid ideations and delusional behavior. His insight and judgement remains significantly impaired. TREATMENT PLAN 1. Will continue on his current medications and treatment protocol. Will monitor his response to the medications and make further adjustments as needed. 2. Will continue to follow up. Dictated by... Danita Reyes/yusuf TD: 01/06/2017 18:17 JOB #: [id number] Unit #: [id number] #: [id number] Patient: MELBA HARRISON PROGRESS NOTES Page 1 of 1 X Farrah Best MD PROGRESS NOTE
--- NOTE | ~2017-01-04 | PN ---
Unit #: [id number] #: [id number] Patient: MELBA HARRISON [id number] [facility] [address] [place] [address] [id number] MR#: [id number] NAME: MELBA HARRISON ROOM: 12 Age: 26 Sex: M Admission Date: 01/04/2017 : 1990 Attending Physician: Farrah Best M.D. Admitting Physician: Farrah Best M.D. Primary Care Physician: Primary Care Physician Kylah VALENTE NOTES DATE 01/08/2017 DISCUSSION Mr. Harrison is a 26-year-old, white male who was seen today and chart was reviewed and case was discussed with the staff. He has been anxious, withdrawn and rather seclusive to himself. Meanwhile, he has been cooperative with the treatment recommendations. He has been taking the medication and tolerating them fairly well with no reported side effects. MENTAL STATUS EXAM Young white male who was casually dressed with fair personal hygiene, appears to be in no acute distress or discomfort. He was awake and alert with impaired attention and concentration. His mood was anxious with congruent affect. His speech was slow and goal directed. He denies any suicidal or homicidal ideation. His insight and judgement remains slightly impaired. TREATMENT PLAN 1. We will continue him on his current treatment protocol. We will monitor his response and make further adjustments as needed. 2. We will continue to follow up. Dictated by... Danita Reyes/siddhartha TD: 01/09/2017 03:14 JOB #: [id number] Unit #: [id number] #: [id number] Patient: MELBA HARRISON PROGRESS NOTES Page 1 of 1 X Farrah Best MD PROGRESS NOTE
--- NOTE | ~2017-01-04 | PN ---
Unit #: [id number] #: [id number] Patient: MELBA HARRISON [id number] [facility] [address] [place] [address] [id number] I MR#: [id number] NAME: MELBA HARRISON ROOM: 12 Age: 26 Sex: M Admission Date: 01/04/2017 : 1990 Attending Physician: Farrah Best M.D. Admitting Physician: Farrah Best M.D. Primary Care Physician: Primary Care Physician Kylah VALENTE NOTES DATE 01/09/2017 DISCUSSION Mr. Harrison is a 26-year-old, white male who was seen today and chart was reviewed and case was discussed with the staff. He remains anxious, withdrawn, disorganized and quite bizarre unable to carry on any meaningful conversation. However, no physical aggression has been reported. He has been taking medications and tolerating them fairly well with no reported side effects. MENTAL STATUS EXAM Young white male who was casually dressed with marginal personal hygiene appears to be in no acute distress or discomfort. He was awake and alert with impaired attention and concentration. His mood was anxious with congruent affect. His speech was slow and tangential. His thought processes were disorganized with some looseness of associations and flight of ideas. His insight and judgement remains significantly impaired. TREATMENT PLAN 1. We will continue him on his current medications and treatment protocol. We will monitor his response to the medication and make further adjustments as needed. 2. We will continue to follow up. Dictated by... Danita Reyes/siddhartha TD: 01/09/2017 21:47 JOB #: [id number] Unit #: [id number] #: [id number] Patient: MELBA HARRISON ESTUARDOANDREW PROGRESS NOTES Page 1 of 1 X Farrah Best MD PROGRESS NOTE
[2017-01-05 09:52] LABS: BASOPHIL% 0.3 % (0-2.5); EOSINOPHIL# 0.3 X10e3 (0-0.7); EOSINOPHIL% 3.1 % (0.0-7.0); HEMATOCRIT 44.1 % (38.0-50.0); HEMOGLOBIN 14.4 gm/dL (13.0-16.0); LYMPHOCYTE# 2.6 X10e3 (1.0-3.5); LYMPHOCYTE% 31.3 % (17.0-45.0); MEAN CORPUSCULAR HEMOGLOBIN 26.8 PG (28-34); MEAN CORPUSCULAR HGB CONC 32.7 g/dL (30-36); MEAN PLATELET VOLUME 8.4 FL (6.5-11.5); MONOCYTE# 0.8 X10e3 (0-1.0); MONOCYTE% 9.3 % (3.0-12.0); NEUTROPHIL# 4.6 X10e3 (1.5-7.1); PLATELET COUNT 236 X10e3 (140-420); RED BLOOD COUNT 5.38 X10e (3.90-5.60); RED CELL DISTRIBUTION WIDTH 16.1 % (11.0-15.5); THYROID STIMULATING HORMONE 0.57 uIU/ml (0.34-5.60); WHITE BLOOD COUNT 8.3 X10e3 (4.0-10.5)
[2017-01-05 09:59] LABS: FREE THYROXIN (T4) 0.85 ng/dL (0.58-1.64)
[2017-01-05 10:00] LABS: DIFF IND NO
[2017-01-05 10:04] LABS: ALBUMIN SERUM 4.1 g/dL (3.5-5.0); BILIRUBIN,TOTAL 0.4 mg/dL (0.2-2.0); BUN/CREATININE RATIO 13.75; CALCIUM SERUM 9.5 mg/dL (8.4-10.2); CREATININE SERUM 0.8 mg/dL (0.6-1.4); GLOM FILT RATE Estimated 125.1 mL/min (>60); POTASSIUM 4.6 mmol/L (3.5-5.1); PROTEIN TOTAL SERUM 6.6 g/dL (6.0-8.3)
== END 2017-01-10 09:55 | disposition home or self-care (01) | DRG 885 ==
LOC: P1S 05:41
PROVIDERS: Psychiatry & Neurology Psychiatry
DX: F20.0 Paranoid schizophrenia (principal); D68.59 Other primary thrombophilia; R45.851 Suicidal ideations; K21.9 Gastro-esophageal reflux disease without esophagitis; Z86.718 Personal history of other venous thrombosis and embolism; Z86.711 Personal history of pulmonary embolism; F17.200 Nicotine dependence, unspecified, uncomplicated
CPT/HCPCS: 80053; 84439; 84443; 85025

== ENCOUNTER 2017-01-31 10:00 | Inpatient (IN) | payer OTHER, MEDICARE ==
[~2017-01-31] VITALS: Ht 170.2 cm; Wt 108.9 kg
--- NOTE | ~2017-01-31 | HP ---
Unit #: [id number] #: [id number] Patient: NICO DURAN [id number] [facility] [address] [place] [address] [id number] I MR#: [id number] NAME: NICO DURAN ROOM: P121 Age: 26 Sex: M Admission Date: 01/31/2017 : 1990 Attending Physician: Farrah Best M.D. Admitting Physician: Farrah Best M.D. Primary Care Physician: Primary Care Physician No HISTORY AND PHYSICAL DATE OF ADMISSION 01/31/2017 HISTORY OF PRESENT ILLNESS Nico is a 26 year old admitted to [address] [place] [address] with psychotic behavior. He was recently discharged from this facility after treatment for the same. The patient was seen and H and P dated 01/04/2017 was reviewed. This is current. No changes. Please see H and P dated 01/04/2017. Dictated by... Tammi Welch P.A.-C. for Danita Carter/siddhartha TD: 01/31/2017 21:10 JOB #: [id number] HISTORY AND PHYSICAL Page 1 of 1 X Tammi Welch HISTORY AND PHYSICAL
--- NOTE | ~2017-01-31 | DS ---
Unit #: [id number] #: [id number] [facility]: [facility] [id number] [facility] [address] [place] [address] [id number] I MR#: [id number] NAME: MELBA DURAN ROOM: [facility] Includes [facility] Age: 26 Sex: M Admission Date: 01/31/2017 : 1990 Discharge Date: 02/05/2017 Attending Physician: Farrah Best M.D. Primary Care Physician: Primary Care Physician No DISCHARGE SUMMARY IDENTIFICATION DATA Mr. Duran is a 26-year-old single white male who is known to us from previous encounter and was transferred to us from emergency room. DISCHARGE DIAGNOSES PSYCHIATRIC: Schizoaffective disorder, bipolar type, most recent episode, depressed, recurrent, moderate, with psychosis. MEDICAL: None. STRESSORS: Mild psychosocial stressors. HISTORY OF PRESENT ILLNESS Same as in initial psychiatric evaluation. PAST PSYCHIATRIC HISTORY Same as in initial psychiatric evaluation. PAST MEDICAL HISTORY Same as in initial psychiatric evaluation. HOSPITAL COURSE The patient was admitted to the adult psychiatric unit at [facility] i[facility] and was oriented to the hospital environment. Routine p.r.n. medications were initiated, and he was started back on his home medications, and medications were adjusted. Lexapro as an antidepressant was added into his Saphris and was closely monitored. He was taking the medications regularly and was tolerating them fairly well and able to show a decent therapeutic response with improvement in depression and anxiety. As such it was decided that he will be discharged home. We will continue treatment on outpatient basis. DISCHARGE MEDICATIONS 1. Saphris 10 mg twice a day for bipolar. 2. Lexapro 10 mg at bedtime for depression. 3. Xarelto 20 mg at bedtime for hypercoagulability. 4. Inderal 5 mg twice a day for anxiety. CONDITION AT DISCHARGE Stable. PROGNOSIS Fair. Unit #: [id number] #: [id number] Patient: MELBA DURAN Dictated by... Farrah Best M.D. IAA/bzg TD: 02/08/2017 08:53 JOB #: [id number] DISCHARGE SUMMARY Page 1 of 1 X Farrah Best MD DISCHARGE SUMMARY
--- NOTE | ~2017-01-31 | PN ---
Unit #: [id number] #: [id number] Patient: MELBA HARRISON [id number] [facility] [address] [place] [address] [id number] I MR#: [id number] NAME: MELBA HARRISON ROOM: P121 Age: 26 Sex: M Admission Date: 01/31/2017 : 1990 Attending Physician: Farrah Best M.D. Admitting Physician: Farrah Best M.D. Primary Care Physician: Primary Care Physician Kylah DODD PROGRESS NOTES DATE 02/02/2017 DISCUSSION Mr. Harrison is a 26-year-old white male who was seen today and chart was reviewed and case was discussed with the staff. He has been anxious, withdrawn, rather seclusive to himself. Meanwhile, he has been cooperative with treatment recommendations and has been taking medications and tolerating them fairly well. MENTAL STATUS EXAMINATION Young white male who was casually dressed with fair personal hygiene and appears to be in no acute distress or discomfort. He was awake and alert on interaction with intact orientation. His mood was anxious with congruent affect. His speech is slow and goal-directed. He denies any suicidal or homicidal ideations and also denies any auditory or visual hallucinations. His insight and judgement remains slightly impaired. TREATMENT PLAN 1. Will continue on his current medications and treatment protocol. Will monitor his response to the medications and make further adjustments as needed. 2. Will continue to follow up. Dictated by... Danita Reyes/yusuf TD: 02/02/2017 20:20 JOB #: [id number] Unit #: [id number] #: [id number] Patient: MELBA HARRISON PROGRESS NOTES Page 1 of 1 X Farrah Best MD PROGRESS NOTE
--- NOTE | ~2017-01-31 | PN ---
Unit #: [id number] #: [id number] Patient: MELBA HARRISON [id number] [facility] [address] [place] [address] [id number] I MR#: [id number] NAME: MELBA HARRISON ROOM: P121 Age: 26 Sex: M Admission Date: 01/31/2017 : 1990 Attending Physician: Farrah Best M.D. Admitting Physician: Farrah Best M.D. Primary Care Physician: Primary Care Physician Kylah DODD PROGRESS NOTES DATE February 04, 2017 DISCUSSION Mr. Harrison is a 26-year-old white male, who was seen today and chart was reviewed and the case was discussed with the staff. He has been anxious, withdrawn, and has been seclusive to himself. Meanwhile, he has been cooperative and compliant with the treatment recommendations; however, remains isolative to himself and has not been participating in treatment related activities. MENTAL STATUS EXAMINATION Young white male, who was casually dressed with fair personal hygiene and appears to be in no acute distress or discomfort. He was awake and alert on interaction with intact orientation. His mood is anxious with a congruent affect. He denies any suicidal or homicidal ideations. His insight and judgment remain slightly impaired. TREATMENT PLAN 1. We will continue him on his current medications and treatment protocol, and will monitor his response to the medications, and make further adjustments as needed. 2. We will continue to followup. Dictated by... Danita Reyes/frida TD: 02/05/2017 11:44 JOB #: [id number] Unit #: [id number] #: [id number] Patient: MELBA HARRISON PROGRESS NOTES Page 1 of 1 X Farrah Best MD X PROGRESS NOTE
--- NOTE | ~2017-01-31 | PN ---
Unit #: [id number] #: [id number] Patient: MELBA HARRISON [id number] [facility] [address] [place] [address] [id number] I MR#: [id number] NAME: MELBA HARRISON ROOM: P121 Age: 26 Sex: M Admission Date: 01/31/2017 : 1990 Attending Physician: Farrah Best M.D. Admitting Physician: Farrah Best M.D. Primary Care Physician: Primary Care Physician Kylah VALENTE NOTES DATE OF SERVICE: 02/03/2017 SUBJECTIVE Mr. Harrison is a 26-year-old white male, who was seen today and chart was reviewed, and case was discussed with the staff. He has been seclusive to himself and has not been socializing or interacting very much. Meanwhile, he has been taking medications and tolerating them fairly well with no reported side effects. MENTAL STATUS EXAMINATION Young white male, who was casually dressed with a fair personal hygiene and appears to be in no acute distress or discomfort. He was awake and alert on interaction with intact orientation. His mood was anxious with a congruent affect. He denies any suicidal or homicidal ideations. His insight and judgment remain slightly impaired. TREATMENT PLAN 1. We will continue him on his current treatment protocol. We will monitor his response to medications and make further adjustments as needed. 2. We will continue to follow up. Dictated by... Danita Reyes/yessy TD: 02/06/2017 00:38 JOB #: [id number] JU PROGRESS NOTES Page 1 of 1 X Farrah Best MD PROGRESS NOTE
--- NOTE | ~2017-01-31 | PA ---
Unit #: [id number] #: [id number] Patient: [facility]ELBA DURAN [id number] [facility] [address] [place] [address] [id number] I MR#: [id number] NAME: MELBA DURAN ROOM: P121 Age: 26 Sex: M Admission Date: 01/31/2017 : 1990 Date of Assessment: 02/01/2017 Attending Physician: Farrah Best M.D. Admitting Physician: Farrah Best M.D. Primary Care Physician: Primary Care Physician No PSYCHIATRIC ASSESSMENT IDENTIFICATION DATA Mr. Duran is a 26-year-old single disabled white male with a long history of chronic mental illness who is a resident of [place], [place], and is known to us from previous encounter and was transferred to us from [facility]. CHIEF COMPLAINT "I walked out of the [facility] HISTORY OF PRESENT ILLNESS Mr. Duran is a 26-year-old white male with history of chronic mental illness who is currently a resident of [facility] and was picked up by the police walking down the highway as he stated that he walked out of the [facility] "I'm hearing voices, but I do not need medicine for it. I believe they are actual people. They are having a regular conversation. I did not want to go to [facility] in the first place. I felt bad like I let go down or something." The patient could not identify how he let go down initially and then stated it was because he did poorly in a competition, and that "if I knew about a competition (1) __ I did not." The patient was seen to be acutely psychotic, paranoid, delusional, and suicidal, and as such recommendation for inpatient level of care for safety and stabilization was made. The patient was medically cleared in the emergency room and then transferred to us. SUBSTANCE ABUSE HISTORY The patient denies any alcohol or drug abuse. PAST PSYCHIATRIC HISTORY The patient has had a history of numerous multiple inpatient psychiatric hospitalizations across different facilities including [facility]. Review of the medical records indicate that he has been diagnosed and treated for schizoaffective disorder bipolar type and is currently on Saphris but does not appear to be showing a therapeutic response to the medication. PAST MEDICAL HISTORY 1. Significant history of blood clot in lungs. 2. Acid reflux disease. MEDICATION ALLERGIES No known medication allergies. PERSONAL AND SOCIAL HISTORY Unit #: [id number] #: [id number] Patient: MELBA DURAN A 26-year-old white male who reports that he is single, unemployed, disabled, and is a resident of [facility] and has fairly decent social support system as his mother is really very well involved in his care. MENTAL STATUS EXAMINATION Young white male who is casually dressed with fair personal hygiene. Appears to be in no acute distress or discomfort. He was awake and alert on interaction with intact orientation to time, place, and person. His mood is anxious and depressed with a congruent affect. His speech is slow and restricted in content. His thought processes were disorganized with some looseness of associations, suicidal ideations, and paranoid ideations. His insight and judgment remain significantly impaired. DIAGNOSTIC IMPRESSION PSYCHIATRIC: Schizoaffective disorder, bipolar type, most recent episode, depressed, recurrent, moderate, with psychosis. MEDICAL: History of blood clots in the lungs. STRESSORS: Moderate psychosocial stressors. TREATMENT PLAN 1. The patient has presented with history of mood disorder and has been decompensating and will need inpatient hospitalization for safety and stabilization. We will start him in fact on his home medications. We will adjust his medications and monitor response. 2. Supportive therapy was provided to the patient. 3. Safe, structured, and nourishing environment will be provided. ESTIMATED LENGTH OF STAY 5 to 7 days. ABILITY TO HELP SELF Limited. WILLINGNESS TO HELP The patient appears to be willing to help self. STRENGTHS 1. Communicative. 2. Cooperative. PROBLEMS 1. Chronic dysphoric symptoms. 2. Poor social support system. DISCHARGE CRITERIA This will be contingent upon the patient's ability to show resolution of his psychosis and agitation and aggression as well as his ability to stay safe to himself, particularly after discharge from the hospital. Dictated by... Danita Reyes TD: 02/01/2017 09:23 Unit #: [id number] #: [id number] Patient: MELBA DURAN JOB #: [id number] PSYCHIATRIC ASSESSMENT Page 1 of 1 X Farrah Best MD PSYCHIATRIC ASSESSMENT
--- NOTE | ~2017-01-31 | PN ---
Unit #: [id number] #: [id number] Patient: MELBA HARRISON [id number] [facility] [address] [place] [address] [id number] MR#: [id number] NAME: MELBA HARRISON ROOM: [facility] Age: 26 Sex: M Admission Date: 01/31/2017 : 1990 Attending Physician: Farrah Best M.D. Admitting Physician: Farrah Best M.D. Primary Care Physician: Primary Care Physician Kylah VALENTE NOTES DATE OF SERVICE 02/01/2017 DISCUSSION Mr. Harrison is a 26-year-old white male who was seen today. Chart was reviewed and case was discussed with the staff. He has been anxious, withdrawn, and rather seclusive to himself and has been exhibiting bizarre behavior. Meanwhile, he has been taking the medications and tolerating them fairly well with no reported side effects. MENTAL STATUS EXAMINATION Young white male who is casually dressed with fair personal hygiene, appears to be in no acute distress or discomfort. He was awake and alert on interaction with intact orientation. His mood is anxious with congruent affect. Speech is slow and restricted in content. His thought processes were disorganized with some looseness of associations and flight of ideas. His insight and judgment remain significantly impaired. TREATMENT PLAN 1. We will continue him on his current medications and treatment protocol. We will monitor his response to the medications and make further adjustments as needed. 2. We will continue to follow up. Dictated by... Danita Reyes/andreag TD: 02/01/2017 12:54 JOB #: [id number] Unit #: [id number] #: [id number] Patient: MELBA HARRISON PROGRESS NOTES Page 1 of 1 X Farrah Best MD PROGRESS NOTE
[2017-02-01 09:46] LABS: BASOPHIL% 0.4 % (0-2.5); EOSINOPHIL# 0.3 X10e3 (0-0.7); EOSINOPHIL% 3.4 % (0.0-7.0); HEMOGLOBIN 13.3 gm/dL (13.0-16.0); LYMPHOCYTE# 2.5 X10e3 (1.0-3.5); LYMPHOCYTE% 29.4 % (17.0-45.0); MEAN CORPUSCULAR HEMOGLOBIN 26.9 PG (28-34); MEAN CORPUSCULAR HGB CONC 32.4 g/dL (30-36); MEAN PLATELET VOLUME 8.3 FL (6.5-11.5); MONOCYTE# 1.2 X10e3 (0-1.0); MONOCYTE% 13.7 % (3.0-12.0); NEUTROPHIL# 4.5 X10e3 (1.5-7.1); NEUTROPHIL% 53.1 % (40-75); PLATELET COUNT 231 X10e3 (140-420); RED BLOOD COUNT 4.94 X10e (3.90-5.60); RED CELL DISTRIBUTION WIDTH 15.6 % (11.0-15.5); WHITE BLOOD COUNT 8.6 X10e3 (4.0-10.5)
[2017-02-01 09:55] LABS: DIFF IND NO
[2017-02-01 10:11] LABS: THYROID STIMULATING HORMONE 0.6 uIU/ml (0.34-5.60)
[2017-02-01 10:13] LABS: ALBUMIN SERUM 3.9 g/dL (3.5-5.0); BILIRUBIN,TOTAL 0.7 mg/dL (0.2-2.0); BUN/CREATININE RATIO 18.75; CALCIUM SERUM 9.1 mg/dL (8.4-10.2); CREATININE SERUM 0.8 mg/dL (0.6-1.4); GLOM FILT RATE Estimated 125.1 mL/min (>60); POTASSIUM 4.1 mmol/L (3.5-5.1); PROTEIN TOTAL SERUM 6.3 g/dL (6.0-8.3)
[2017-02-01 10:18] LABS: FREE THYROXIN (T4) 1.15 ng/dL (0.58-1.64)
== END 2017-02-05 09:45 | disposition home or self-care (01) | DRG 885 ==
LOC: P1S 15:40
PROVIDERS: Psychiatry & Neurology Psychiatry
DX: F31.5 Bipolar disorder, current episode depressed, severe, with psychotic features (principal)
CPT/HCPCS: 80053; 84439; 84443; 85025